=== PATIENT | male | born 1995 ===

== ENCOUNTER 2017-11-03 10:44 | Outpatient (RCR) | payer OTHER | END 2018-02-01 | disposition home or self-care (01) | LOC: WSOH | DX: S91.331A Puncture wound without foreign body, right foot, initial encounter (principal); W25.XXXA Contact with sharp glass, initial encounter; Y93.01 Activity, walking, marching and hiking; Y92.411 Interstate highway as the place of occurrence of the external cause; Y99.0 Civilian activity done for income or pay ==